=== PATIENT | male | born 1985 | race Caucasian/White ===

== ENCOUNTER 2017-09-20 12:48 | Inpatient (IN) | payer BC ==
[~2017-09-20] VITALS: Ht 172.7 cm; Wt 97.5 kg
[~2017-09-20 12:48] MED LIST: AMOX-355 PO; CETI10CA PO; MMT17NA NSEACH; PREDNISONE 20MG; VICODIN 5/325 PO
--- NOTE | 2017-09-20 13:22 | ED Abdominal Pain ---
General Chief Complaint: Abdominal/GI Problems Stated Complaint: ABD PAIN History of Present Illness Date Seen by Provider: Sep 20, 2017 Time Seen by Provider: 13:22 Initial Comments Patient presents to the emergency room with complaints of left lower abdominal pain and ache in his testicles for 2 days. Mild nausea yesterday yesterday and thinks that this was preceded by abdominal bloating 1 week ago. Pt denies any tenderness on palpation of his testicles. There is no redness and swelling noted at this time. Timing/Duration: 2-3 Days Severity/Quality: Mild Location: LLQ Radiation: No Radiation Activities at Onset: Activity Modifying Factors: Improves With Lying down Associated Symptoms: Nausea/Vomiting Allergies and Home Medications Allergies Coded Allergies: No Known Drug Allergies (Unverified , 06/19/13) Home Medications Amoxicillin/Clavulanate K 1 Each Tablet, 1 EACH PO BID Prescribed by: ROBIN GARCIA on 06/21/13 1046 Cetirizine Hcl 10 Mg Capsule, 10 MG PO DAILY, (Reported) Mometasone Furoate 17 Gm Carrie, 2 SPRAY NSEACH DAILY, (Reported) [Vicodin 5/325] , 1-2 TAB PO Q4H PRN for PAIN Prescribed by: ROBIN GARCIA on 06/21/13 1046 Patient Home Medication List Home Medication List Reviewed: Yes Review of Systems Constitutional: no symptoms reported, see HPI EENTM: No Symptoms Reported, See HPI Respiratory: No Symptoms Reported, See HPI Cardiovascular: No Symptoms Reported, See HPI Gastrointestinal: See HPI, Abdominal Pain, Nausea (mild nausea yesterday) Genitourinary: No Symptoms Reported, See HPI, Other (ache in his testicles ) Musculoskeletal: no symptoms reported, see HPI Skin: no symptoms reported, see HPI Psychiatric/Neurological: No Symptoms Reported, See HPI Endocrine: No Symptoms Reported, See HPI Hematologic/Lymphatic: No Symptoms Reported, See HPI Past Cfafibd-Zfbtuw-Agdxbe Hx Patient Social History Recent Foreign Travel: No Contact w/Someone Who Travel: No Physical Exam Vital Signs VS - Last 72 Hours, by Label 09/20/17 09/20/17 09/20/17 13:00 13:34 13:35 Temp 97.3 97.3 97.3 Pulse 118 Resp 24 B/P (MAP) 119/81 (94) Pulse Ox 96 O2 Delivery Room Air Capillary Refill : General Appearance: WD/WN, no apparent distress HEENT: normal ENT inspection Neck: non-tender, full range of motion Respiratory: chest non-tender, lungs clear, normal breath sounds, no respiratory distress, no accessory muscle use Cardiovascular: normal peripheral pulses, regular rate, rhythm Gastrointestinal: normal bowel sounds, tenderness Genital/Rectal: normal genital exam Extremities: normal range of motion, non-tender, normal inspection Back: normal inspection Pelvic: normal external exam Male: normal genitalia, No testicular tenderness, other (no redness or swelling on exam. ) Skin: normal color, warm/dry Progress/Results/Core Measures Results/Orders Lab Results Laboratory Tests Test 09/20/17 13:10 Range/Units White Blood Count 17.9 H 4.3-11.0 10^3/uL Red Blood Count 4.75 4.35-5.85 10^6/uL Hemoglobin 15.1 13.3-17.7 G/DL Hematocrit 42 40-54 % Mean Corpuscular Volume 89 80-99 FL Mean Corpuscular Hemoglobin 32 25-34 PG Mean Corpuscular Hemoglobin Concent 36 32-36 G/DL Red Cell Distribution Width 12.1 10.0-14.5 % Platelet Count 284 130-400 10^3/uL Mean Platelet Volume 10.7 H 7.4-10.4 FL Neutrophils (%) (Auto) 84 H 42-75 % Lymphocytes (%) (Auto) 6 L 12-44 % Monocytes (%) (Auto) 10 0-12 % Eosinophils (%) (Auto) 0 0-10 % Basophils (%) (Auto) 0 0-10 % Neutrophils # (Auto) 15.0 H 1.8-7.8 X 10^3 Lymphocytes # (Auto) 1.1 1.0-4.0 X 10^3 Monocytes # (Auto) 1.8 H 0.0-1.0 X 10^3 Eosinophils # (Auto) 0.0 0.0-0.3 10^3/uL Basophils # (Auto) 0.0 0.0-0.1 10^3/uL Neutrophils % (Manual) 78 % Lymphocytes % (Manual) 6 % Monocytes % (Manual) 10 % Eosinophils % (Manual) 0 % Basophils % (Manual) 0 % Band Neutrophils 6 % Blood Morphology Comment NORMAL Sodium Level 137 135-145 MMOL/L Potassium Level 3.8 3.6-5.0 MMOL/L Chloride Level 106 98-107 MMOL/L Carbon Dioxide Level 20 L 21-32 MMOL/L Anion Gap 11 5-14 MMOL/L Blood Urea Nitrogen 10 7-18 MG/DL Creatinine 0.96 0.60-1.30 MG/DL Estimat Glomerular Filtration Rate > 60 BUN/Creatinine Ratio 10 Glucose Level 127 H 70-105 MG/DL Calcium Level 8.7 8.5-10.1 MG/DL Total Bilirubin 1.1 H 0.1-1.0 MG/DL Aspartate Amino Transf (AST/SGOT) 15 5-34 U/L Alanine Aminotransferase (ALT/SGPT) 18 0-55 U/L Alkaline Phosphatase 75 40-136 U/L Total Protein 7.1 6.4-8.2 GM/DL Albumin 4.0 3.2-4.5 GM/DL Lipase 10 8-78 U/L My Orders Orders - ANIYAH ANGELES APRN Fentanyl Injection (Sublimaze Injection (09/20/17 13:30) Ketorolac Injection (Toradol Injection) (09/20/17 13:30) Cbc With Automated Diff (09/20/17 13:22) Comprehensive Metabolic Panel (09/20/17 13:22) Lipase (09/20/17 13:22) Ua Culture If Indicated (09/20/17 13:22) Ct Abdomen/Pelvis W (09/20/17 13:22) Iohexol Injection (Omnipaque 350 Mg/Ml 1 (09/20/17 13:30) Ns (Ivpb) (Sodium Chloride 0.9% Ivpb Bag (09/20/17 13:30) Manual Differential (09/20/17 13:10) Piperacillin Sodium/Tazobactam (Zosyn Vi (09/20/17 14:30) Ns Iv 1000 Ml (Sodium Chloride 0.9%) (09/20/17 14:30) Lactic Acid Analyzer (09/20/17 14:27) Blood Culture (09/20/17 14:27) Blood Culture (09/20/17 14:31) Medications Given in ED Current Medications Medications Dose Ordered Sig/Maite Route Start Time Stop Time Status Last Admin Dose Admin Fentanyl Citrate 50 mcg ONCE ONCE IVP 09/20/17 13:30 09/20/17 13:31 DC 09/20/17 13:35 50 MCG Iohexol 100 ml ONCE ONCE IV 09/20/17 13:30 09/20/17 13:31 DC 09/20/17 13:56 75 ML Ketorolac Tromethamine 30 mg ONCE ONCE IVP 09/20/17 13:30 09/20/17 13:31 DC 09/20/17 13:34 30 MG Sodium Chloride 100 ml ONCE ONCE IV 09/20/17 13:30 09/20/17 13:31 DC 09/20/17 13:56 100 ML Vital Signs/I&O Vital Sign - Last 12Hours 09/20/17 09/20/17 09/20/17 13:00 13:34 13:35 Temp 97.3 97.3 97.3 Pulse 118 Resp 24 B/P (MAP) 119/81 (94) Pulse Ox 96 O2 Delivery Room Air Diagnostic Imaging Diagonstic Imaging: CT Comments NAME: [facility] REC#: [id number] PT STATUS: REG ER : 1985 PHYSICIAN: ANIYAH ANGELES APRN ADMIT DATE: 09/20/17/ER Draft Date of Exam:09/20/17 CT ABDOMEN/PELVIS W PROCEDURE: CT abdomen and pelvis with contrast. TECHNIQUE: Multiple contiguous axial images were obtained through the abdomen and pelvis after administration of intravenous contrast. INDICATION: Left lower quadrant pain with bloating and cramping. No prior studies are available for comparison. The lung bases are clear. Liver and gallbladder are unremarkable. The pancreas and spleen are unremarkable. No adrenal mass is seen. Kidneys are unremarkable. Aorta is non-aneurysmal. The appendix is visualized in the right lower quadrant and unremarkable. There is a segment of the significant circumferential wall thickening and pericolonic inflammatory stranding involving the sigmoid colon just distal to the descending colon. There are several small extraluminal air bubbles present adjacent to the inflamed loop consistent with microperforation. There is no fluid collection identified to suggest abscess formation. No findings to suggest bowel obstruction are seen. Bladder is decompressed. Prostate is unremarkable. IMPRESSION: Findings consistent with acute sigmoid diverticulitis. There are findings consistent with microperforation. No abscess formation or bowel obstruction is identified at this time. Dictated on workstation # [id number] Dict: 09/20/17 1407 Trans: 09/20/17 1414 [facility] [id number] Interpreted by: JUAN M CASE MD Electronically signed by: Departure Communication (Admissions) Time/Spoke to Admitting Phy: 14:51 Communication I spoke with Dr. Trivedi who agrees to admit the patient, consult to surgery Time/Spoke to Consulting Phy: 14:52 Communication/Consulting Spoke with Dr. Stevens who would like the patient admitted to medicine, he will consult. Agrees with Zosyn, IV fluids. He will see the patient later this evening. Impression Impression: Primary Impression: acute sigmoid diverticulitis with microperforation Disposition: ADMITTED INPATIENT Condition: Stable Admissions Decision to Admit Reason: Admit from ER (General) Decision to Admit/Date: Sep 20, 2017 Time/Decision to Admit Time: 14:52 Departure-Patient Inst. Referrals: SARAH TOWNSEND MD (PCP/Family) Primary Care Physician ANIYAH ANGELES APRN Sep 20, 2017 13:22
[2017-09-20 13:30] LABS: BASOPHILS % (AUTO) 0 % (0-10); EOSINOPHILS % (AUTO) 0 % (0-10); HEMATOCRIT 42 % (40-54); HEMOGLOBIN 15.1 G/DL (13.3-17.7); LYMPHOCYTES # (AUTO) 1.1 X 10^3 (1.0-4.0); LYMPHOCYTES % (AUTO) 6 % (12-44); MEAN CORPUSCULAR HEMOGLOBIN 32 PG (25-34); MEAN CORPUSCULAR HGB CONC 36 G/DL (32-36); MEAN CORPUSCULAR VOLUME 89 FL (80-99); MEAN PLATELET VOLUME 10.7 FL (7.4-10.4); MONOCYTES # (AUTO) 1.8 X 10^3 (0.0-1.0); MONOCYTES % (AUTO) 10 % (0-12); NEUTROPHILS % (AUTO) 84 % (42-75); PLATELET COUNT 284 10^3/uL (130-400); RED BLOOD COUNT 4.75 10^6/uL (4.35-5.85); RED CELL DISTRIBUTION WIDTH 12.1 % (10.0-14.5); WHITE BLOOD COUNT 17.9 10^3/uL (4.3-11.0)
[2017-09-20] MEDS ORDERED: fentaNYL INJECTION 100 MCG/2 ML AMP IVP ONE ×2 (13:30→15:00)
[2017-09-20] MEDS ORDERED: IOHEXOL 350 MG/ML 100 ML (OMNIPAQUE 350) VIAL IV ONE (13:30)
[2017-09-20] MEDS ORDERED: NS 100 ML (IVPB) BAG IV ONE (13:30)
[2017-09-20] MEDS ORDERED: KETOROLAC 30 MG/ML VIAL IVP ONE (13:30)
[2017-09-20 13:45] LABS: ALANINE AMINOTRANSFERASE 18 U/L (0-55); ALKALINE PHOSPHATASE 75 U/L (40-136); BILIRUBIN,TOTAL 1.1 MG/DL (0.1-1.0); BUN/CREATININE RATIO 10; CALCIUM 8.7 MG/DL (8.5-10.1); CARBON DIOXIDE 20 MMOL/L (21-32); CHLORIDE 106 MMOL/L (98-107); CREATININE SERUM 0.96 MG/DL (0.60-1.30); GFR ESTIMATED > 60; GLUCOSE 127 MG/DL (70-105); LIPASE 10 U/L (8-78); POTASSIUM 3.8 MMOL/L (3.6-5.0); SODIUM 137 MMOL/L (135-145); TOTAL PROTEIN 7.1 GM/DL (6.4-8.2)
[2017-09-20 13:47] LABS: BAND NEUTROPHILS 6 %; BASOPHILS % (MANUAL) 0 %; EOSINOPHILS % (MANUAL) 0 %; LYMPHOCYTES % (MANUAL) 6 %; MONOCYTES % (MANUAL) 10 %; NEUTROPHILS % (MANUAL) 78 %
[2017-09-20 13:48] LABS: RBC MORPH NORMAL
--- NOTE | 2017-09-20 14:15 | Diagnostic Imaging Report ---
PROCEDURE: CT abdomen and pelvis with contrast. TECHNIQUE: Multiple contiguous axial images were obtained through the abdomen and pelvis after administration of intravenous contrast. INDICATION: Left lower quadrant pain with bloating and cramping. No prior studies are available for comparison. The lung bases are clear. Liver and gallbladder are unremarkable. The pancreas and spleen are unremarkable. No adrenal mass is seen. Kidneys are unremarkable. Aorta is non-aneurysmal. The appendix is visualized in the right lower quadrant and unremarkable. There is a segment of the significant circumferential wall thickening and pericolonic inflammatory stranding involving the sigmoid colon just distal to the descending colon. There are several small extraluminal air bubbles present adjacent to the inflamed loop consistent with microperforation. There is no fluid collection identified to suggest abscess formation. No findings to suggest bowel obstruction are seen. Bladder is decompressed. Prostate is unremarkable. IMPRESSION: Findings consistent with acute sigmoid diverticulitis. There are findings consistent with microperforation. No abscess formation or bowel obstruction is identified at this time. Dictated by: Dictated on workstation # [id number]
[2017-09-20] MEDS ORDERED: PIPERACILLIN SODIUM/TAZOBACTAM 4.5 GM in NS (IVPB) 100 ML IV ONE (14:30)
[2017-09-20] MEDS ORDERED: NS IV 1000 ML 1,000 ML IV SCH (14:30)
--- OUTSIDE RECORDS SUMMARY | 2017-09-20 15:15 | XMS REPORT | Clinical Summary ---
Author Author [facility] Organization [facility] Address Unknown Phone Unavailable Care Team Providers Care Stained Glass Glazier Name Role Phone No Pcp, Na PCP Unavailable Source Comments Some departments are not documenting in the electronic medical record. If you do not see the information that you expected, contact Release of Information in the Health Information Management department at [phone] for further assistance in locating additional records.[facility] Allergies No Known Allergies Current Medications Prescription Sig. Disp. Refills Start End Date Status Date FEXOFENADINE HCL (NURIA Take by mouth. Active PO) acetaminophen/codeine Take 1 Tab by mouth every 30 Tab 0 10/27/19 Active (TYLENOL #3) 300/30 mg 6 hours as needed for 17 tablet Pain. Max of 4,000 mg of acetaminophen in 24 hours. dexamethasone (DECADRON) INSTILL 2 DROPS INTO EACH 15 mL 2 02/05/20 Active 0.1 % ophthalmic solution NOSTRIL THREE TIMES 17 DAILY, THEN TAKE 1 WEEK OFF EVERY MONTH fluticasone (FLONASE) 50 2 SPRAYS IN EACH NOSTRIL 32 mL 3 09/14/19 Active mcg/actuation nasal spray 2 TIMES A DAY. 1 WEEK PER 18 MONTH WHEN OFF DROPS fluticasone (FLONASE) 50 2 sprays in each nostril 16 g 3 07/29/19 Discontin mcg/actuation nasal spray 2 times a day 1 week per 17 18 ued month when off drops Active Problems Problem Noted Date Nasal congestion 10/19/2016 Seasonal allergic rhinitis due to pollen 09/28/2016 Chronic recurrent sinusitis 07/29/2016 Overview: Right maxillary subacute with thick white discharge FESS good opening/ hooded by middle turbinates Resolved Problems Problem Noted Date Resolved Date Chronic recurrent sinusitis 09/28/2016 09/28/2016 Encounters Date Type Specialty Care Team Description 09/14/2017 Refill Otolaryngology Anatoly Jacques MD from Last 3 Months Social History Tobacco Use Types Packs/Day Years Used Date Former Smoker Cigarettes 0.5 10 Smokeless Tobacco: Chew Current User Comments: occasional Alcohol Use Drinks/Week oz/Week Comments Yes 1 Cans of 0.6 beer Sex Assigned at Date Recorded Not on file Last Filed Vital Signs Vital Sign Reading Time Taken Blood Pressure 126/87 12/07/2016 2:00 PM CDT Pulse 66 12/07/2016 2:00 PM CDT Temperature 37 C (98.6 F) 10/19/2016 7:50 AM CDT Respiratory Rate - - Oxygen Saturation 98% 10/19/2016 7:50 AM CDT Inhaled Oxygen - - Concentration Weight 99.9 kg (220 lb 3.2 oz) 12/07/2016 2:00 PM CDT Height 175.3 cm (5' 9") 12/07/2016 2:00 PM CDT Body Mass Index 32.52 12/07/2016 2:00 PM CDT Plan of Treatment Health Maintenance Due Date Last Done Comments PHYSICAL (COMPREHENSIVE) 10/16/1991 EXAM PERTUSSIS VACCINE 10/16/1995 TETANUS VACCINE 2001 INFLUENZA VACCINE 02/15/2018 Results Not on filefrom Last 3 Months
--- OUTSIDE RECORDS SUMMARY | 2017-09-20 15:15 | XMS REPORT | Encounter Summary ---
Author Author [facility] Organization [facility] Address Unknown Phone Unavailable Care Team Providers Care Buttermaker Continuous Churn Name Role Phone No Pcp, Na PCP Unavailable Reason for Visit * Reason Comments Medication Refill Encounter Details Date Type Department Care Team Description 09/14/2017 Refill [facility] Anatoly Jacques MD Physicians - ENT [address] [facility] [place] [address] OFFICE [address]LDG [phone] [place] [address] Social History Tobacco Use Types Packs/Day Years Used Date Former Smoker Cigarettes 0.5 10 Smokeless Tobacco: Chew Current User Comments: occasional Alcohol Use Drinks/Week oz/Week Comments Yes 1 Cans of 0.6 beer Sex Assigned at Date Recorded Not on file as of this encounter Plan of Treatment Not on fileas of this encounter Visit Diagnoses Not on filein this encounter
--- OUTSIDE RECORDS SUMMARY | 2017-09-20 15:15 | XMS REPORT ---
Author CONI Kern Organization [employer] Address Unknown Phone Unavailable Care Team Providers Care Civilian Technician Name Role Phone CONI LYON CP Unavailable Allergies, Adverse Reactions, Alerts Substance Reaction Event Type N.K.D.A. Info Not Available Non Drug Allergy Problems Problem Type Condition Code Onset Dates Condition Status Problem Allergic rhinitis, cause unspecified 477.9 Active Problem Acute sinusitis, unspecified 461.9 Active Problem Other and unspecified noninfectious gastroenteritis and colitis 558.9 Active Assessment Allergic rhinitis J30.9 Active Assessment Sinusitis J32.9 Active Medications Medication Code System Code Instructions Start Date End Date Status Dosage Zyrtec-D Allergy & Congestion [facility] [address] 5-120 MG Orally Twice a day prn congestion January 02, [address] [facility] [address]-35 250 MG Orally Once a day Aug 05, 2015 Aug 10, 2015 2 tablets on the first day, then 1 tablet daily for 4 days ZyrTEC NDC 0 5 mg January 10, 2013 1 tablet by Oral route 1 time per day Procedures Procedure Coding System Code Date KENALOG 40 MG/ML (PER 10 MG) CPT-4 J3301 Aug 05, 2015 THER/PROPH/DIAG INJ, SC/IM CPT-4 45996 Aug 05, 2015 Office Visit, Est Pt., Level 3 CPT-4 13822 Aug 05, 2015 Vital Signs Date/Time: Aug 05, 2015 Temperature 97.9 F Weight 238.4 lbs Height 68 in BMI 36.24 Index Blood Pressure Diastolic 80 mmHg Blood Pressure Systolic 124 mmHg Cardiac Monitoring Heart Rate 68 bpm Results No Known Results Summary Purpose [employer] Submission
--- OUTSIDE RECORDS SUMMARY | 2017-09-20 15:15 | XMS REPORT | Continuity of Care Document ---
Author Author [employer] Organization [facility] Address Unknown Phone Unavailable Care Team Providers Care National Account Director Name Role Phone [employer] Unavailable Unavailable Problems Medications Allergies, Adverse Reactions, Alerts Immunizations Results Vital Signs Encounters Location Location Details Encounter Type Encounter Number Reason For Visit Attending Provider ADM Date DC Date Status Source OUTPATIENT [id number] FE VIKTORIYA 09/28/2016 09/28/2016 Active [facility] O Active [facility] Procedures Plan of Care Social History Assessment and Plan Family History Advance Directives Functional Status
--- OUTSIDE RECORDS SUMMARY | 2017-09-20 15:16 | XMS REPORT | Continuity of Care Document ---
Author Author [facility] Organization [facility] Address Unknown Phone Unavailable Allergies Active Description Code Type Severity Reaction Onset Reported/Identified Relationship to Patient Clinical Status Yes No Known Drug Allergies [id number] Drug Allergy Unknown N/A 06/19/2013 Medications There is no data. Problems Date Dx Coded Attending Type Code Diagnosis Diagnosed By 01/10/2013 WILNER ZAMUDIO DO 558.9 GASTROENTERITIS NONINFECTIOUS 01/10/2013 CONI LYON APRN 558.9 GASTROENTERITIS NONINFECTIOUS 06/21/2013 SONIDO PATHAK MD P Ot 473.0 CHR MAXILLARY SINUSITIS 06/21/2013 SONIDO PATHAK MD Ot 473.1 CHR FRONTAL SINUSITIS 06/21/2013 SONIDO PATHAK MD Ot 473.2 CHR ETHMOIDAL SINUSITIS 06/21/2013 SONIDO PATHAK MD P Ot 478.0 HYPERTRPH NASAL TURBINAT 10/10/2014 CONI LYON APRN 461.9 SINUSITIS ACUTE 10/10/2014 CONI LYON APRN 477.9 ALLERGIC RHINITIS CAUSE UNSPECIFIED 05/18/2016 SONIDO PATHAK MD Ot 473.9 CHRONIC SINUSITIS NOS 05/18/2016 SONIDO PATHAK MD Ot 470 DEVIATED NASAL SEPTUM 05/18/2016 SONIDO PATHAK MD Ot 473.9 CHRONIC SINUSITIS NOS 05/18/2016 SONIDO PATHAK MD Ot 478.0 HYPERTRPH NASAL TURBINAT 05/18/2016 SONIDO PATHAK MD Ot V72.63 PRE-PROCEDURAL LABORATORY EXAMINATION 05/18/2016 SONIDO PATHAK MD Ot V74.8 SCREEN-BACTERIAL DIS NEC 06/03/2016 SONIDO PATHAK MD Ot 473.9 CHRONIC SINUSITIS NOS 06/03/2016 SONIDO PATHAK MD Ot 470 DEVIATED NASAL SEPTUM 06/03/2016 SONIDO PATHAK MD Ot 473.9 CHRONIC SINUSITIS NOS 06/03/2016 SONIDO PATHAK MD P Ot 478.0 HYPERTRPH NASAL TURBINAT 06/03/2016 SONIDO PATHAK MD, Ot V72.63 PRE-PROCEDURAL LABORATORY EXAMINATION 06/03/2016 SONIDO PATHAK MD, Ot V74.8 SCREEN-BACTERIAL DIS NEC 06/04/2016 SONIDO PATHAK MD, Ot J35.3 HYPERTROPHY OF TONSILS WITH HYPERTROPHY 06/16/2016 SONIDO PATHAK MD, Ot J35.3 HYPERTROPHY OF TONSILS WITH HYPERTROPHY Procedures Code Description Performed By Performed On J3301 KENALOG INJ, PER 10 MG 10/10/2014 52095 THERAPUTIC INJ SQ/IM 10/10/2014 Results Test Result Range Complete blood count (CBC) with automated white blood cell (WBC) differential - 09/20/17 13:10 Blood leukocytes automated count (number/volume) 17.9 10*3/uL 4.3-11.0 Blood erythrocytes automated count (number/volume) 4.75 10*6/uL 4.35-5.85 Venous blood hemoglobin measurement (mass/volume) 15.1 g/dL 13.3-17.7 Blood hematocrit (volume fraction) 42 % 40-54 Automated erythrocyte mean corpuscular volume 89 [foz_us] 80-99 Automated erythrocyte mean corpuscular hemoglobin (mass per erythrocyte) 32 pg 25-34 Automated erythrocyte mean corpuscular hemoglobin concentration measurement ( mass/volume) 36 g/dL 32-36 Automated erythrocyte distribution width ratio 12.1 % 10.0-14.5 Automated blood platelet count (count/volume) 284 10*3/uL 130-400 Automated blood platelet mean volume measurement 10.7 [foz_us] 7.4-10.4 Automated blood neutrophils/100 leukocytes 84 % 42-75 Automated blood lymphocytes/100 leukocytes 6 % 12-44 Blood monocytes/100 leukocytes 10 % 0-12 Automated blood eosinophils/100 leukocytes 0 % 0-10 Automated blood basophils/100 leukocytes 0 % 0-10 Blood neutrophils automated count (number/volume) 15.0 10*3 1.8-7.8 Blood lymphocytes automated count (number/volume) 1.1 10*3 1.0-4.0 Blood monocytes automated count (number/volume) 1.8 10*3 0.0-1.0 Automated eosinophil count 0.0 10*3/uL 0.0-0.3 Automated blood basophil count (count/volume) 0.0 10*3/uL 0.0-0.1 Comprehensive metabolic panel - 09/20/17 13:10 Serum or plasma sodium measurement (moles/volume) 137 mmol/L 135-145 Serum or plasma potassium measurement (moles/volume) 3.8 mmol/L 3.6-5.0 Serum or plasma chloride measurement (moles/volume) 106 mmol/L 98-107 Carbon dioxide 20 mmol/L 21-32 Serum or plasma anion gap determination (moles/volume) 11 mmol/L 5-14 Serum or plasma urea nitrogen measurement (mass/volume) 10 mg/dL 7-18 Serum or plasma creatinine measurement (mass/volume) 0.96 mg/dL 0.60-1.30 Serum or plasma urea nitrogen/creatinine mass ratio 10 NRG Serum or plasma creatinine measurement with calculation of estimated glomerular filtration rate > NRG Serum or plasma glucose measurement (mass/volume) 127 mg/dL 70-105 Serum or plasma calcium measurement (mass/volume) 8.7 mg/dL 8.5-10.1 Serum or plasma total bilirubin measurement (mass/volume) 1.1 mg/dL 0.1-1.0 Serum or plasma alkaline phosphatase measurement (enzymatic activity/volume) 75 U/L 40-136 Serum or plasma aspartate aminotransferase measurement (enzymatic activity/ volume) 15 U/L 5-34 Serum or plasma alanine aminotransferase measurement (enzymatic activity/volume ) 18 U/L 0-55 Serum or plasma protein measurement (mass/volume) 7.1 g/dL 6.4-8.2 Serum or plasma albumin measurement (mass/volume) 4.0 g/dL 3.2-4.5 Lipase - 09/20/17 13:10 Lipase 10 U/L 8-78 Blood manual differential performed detection - 09/20/17 13:10 Blood monocytes/100 leukocytes 10 % NRG Manual blood segmented neutrophils/100 leukocytes 78 % NRG Blood band neutrophils/100 leukocytes 6 % NRG Manual blood lymphocytes/100 leukocytes 6 % NRG Manual eosinophils/100 leukocytes in nose 0 % NRG Manual blood basophils/100 leukocytes 0 % NRG Blood erythrocyte morphology finding identification NORMAL NRG Encounters ACCT No. Visit Date/Time Discharge Status Pt. Type Provider Facility Loc./Unit Complaint [id number] 06/03/2016 13:06:00 06/03/2016 23:59:59 CLS Outpatient LAWSON GRADY, SONIDO Mcarthur [facility] RAD NASAL CONGESTION [id number] 06/21/2013 07:01:00 06/21/2013 11:40:00 DIS Outpatient SONIDO PATHAK MD [facility] SDC CHRONIC SINUSITIS [id number] 06/19/2013 11:40:00 06/19/2013 23:59:59 CLS Outpatient SONIDO PATHAK MD [facility] PREOP CHRONIC SINUSITIS [id number] 05/11/2013 14:22:00 05/11/2013 23:59:59 CLS Outpatient SONIDO PATHAK MD [facility] RAD CHRONIC SINUSITIS [id number] 09/20/2017 12:49:00 ACT Emergency ANIYAH ANGELES APRN [facility] ER ABD PAIN [id number] 10/10/2014 08:39:00 10/10/2014 23:59:59 CLS Outpatient CONI LYON APRN [id number] 01/10/2013 11:58:00 01/10/2013 23:59:59 CLS Outpatient WILNER ZAMUDIO DO
[2017-09-20 15:17] LABS: BILIRUBIN,URINE NEGATIVE (NEGATIVE); CLARITY,URINE CLEAR; COLOR,URINE AMBER; GLUCOSE, URINE (UA) NEGATIVE (NEGATIVE); KETONES,URINE NEGATIVE (NEGATIVE); LEUKOCYTE ESTERASE ,URINE 1+ (NEGATIVE); NITRITE,URINE NEGATIVE (NEGATIVE); PH,URINE 5 (5-9); PROTEIN,URINE 2+ (NEGATIVE); UROBILINOGEN,URINE 1 MG/DL (NORMAL)
[2017-09-20 15:25] LABS: AMORPHOUS SEDIMENT,UR MOD AMOR URATES /LPF; SQUAMOUS EPITHELIAL CELL,UR 0-2 /HPF
--- NOTE | 2017-09-20 15:26 | History & Physical-Hospitalist ---
HPI History of Present Illness: HPI/Chief Complaint Pt is a 31yoCM who presented to the ER with a CC of left lower abd pain. He states his symptoms started last night and his pain progressed of severe pain at that time. He decided to seek evaluation today as it didn't get any better. He describes the pain as sharp and point to his LLQ when asked. He states it is worsened by pressing on it and moving. He denies any fevers. He has had some nausea but no vomiting, constipation, or diarrhea. He has had not previous episodes of diverticulitis or bowel issues. Source: patient Date Seen 09/20/17 Time Seen by Provider: 14:55 Attending Physician Lul Churchill MD PCP Rickie Mann MD Referring Physician Date of Admission Sep 20, 2017 at 2:52 pm Home Medications & Allergies Home Medications Reviewed patient Home Medication Reconciliation Form Allergies Allergies Coded Allergies No Known Drug Allergies (Uajqijceqm51/3/13) Past Kotnbok-Uxiqwf-Uyghue Hx Patient Social History Employed/Student: employed Alcohol Use: Occasionally Uses Alcohol Beverage of Choice: Beer Recreational Drug Use: No Smoking Status: Never a Smoker Recent Foreign Travel: No Contact w/other who traveled: No Recent Infectious Disease Expo: No Surgeries Yes (sinus surgery) Cardiovascular No Neurological No Genitourinary No Gastrointestinal No Musculoskeletal No Endocrine History of Endocrine Disorders: No HEENT History of HEENT Disorders: Yes (sinus surgeries) Cancer No Psychosocial History of Psychiatric Problem: No Integumentary History of Skin or Integumenta: No Family Medical History Significant Family History: Heart Disease Other Significan Family Hx: Father with diverticulosis Review of Systems Constitutional: No chills, No fever EENTM: No blurred vision, No double vision, No nose congestion, No throat pain Respiratory: No cough, No dyspnea on exertion, No short of breath Cardiovascular: No chest pain, No edema, No palpitations Gastrointestinal: see HPI, abdominal pain (LLQ), No constipation, No diarrhea, nausea, No vomiting Genitourinary: No dysuria, No frequency Musculoskeletal: No joint pain, No muscle pain Skin: No lesions, No rash Psychiatric/Neurological: Denies Headache, Denies Numbness, Denies Tingling Physical Exam Physical Exam Vital Signs Vital Signs - First Documented 09/20/17 13:00 Temp 97.3 Pulse 118 Resp 24 B/P (MAP) 119/81 (94) Pulse Ox 96 O2 Delivery Room Air Capillary Refill : Less Than 3 Seconds General Appearance: No Apparent Distress, WD/WN HEENT: PERRL/EOMI, Moist Mucous Membranes Neck: Non Tender, Supple, No JVD, No Thyromegaly Respiratory: Lungs Clear, No Respiratory Distress Cardiovascular: Regular Rate, Rhythm, No Murmur Gastrointestinal: Normal Bowel Sounds, Soft, No Distended, No Guarding, No Rebound, Tenderness (LLQ) Extremity: Normal Capillary Refill, No Calf Tenderness, No Pedal Edema Neurologic/Psychiatric: Alert, Oriented x3, No Motor/Sensory Deficits, Normal Mood/Affect Skin: Normal Color, Warm/Dry Results Results/Procedures Lab Laboratory Tests 09/20/17 13:10 Radiology Date of Exam:09/20/17 CT ABDOMEN/PELVIS W PROCEDURE: CT abdomen and pelvis with contrast. TECHNIQUE: Multiple contiguous axial images were obtained through the abdomen and pelvis after administration of intravenous contrast. INDICATION: Left lower quadrant pain with bloating and cramping. No prior studies are available for comparison. The lung bases are clear. Liver and gallbladder are unremarkable. The pancreas and spleen are unremarkable. No adrenal mass is seen. Kidneys are unremarkable. Aorta is non-aneurysmal. The appendix is visualized in the right lower quadrant and unremarkable. There is a segment of the significant circumferential wall thickening and pericolonic inflammatory stranding involving the sigmoid colon just distal to the descending colon. There are several small extraluminal air bubbles present adjacent to the inflamed loop consistent with microperforation. There is no fluid collection identified to suggest abscess formation. No findings to suggest bowel obstruction are seen. Bladder is decompressed. Prostate is unremarkable. IMPRESSION: Findings consistent with acute sigmoid diverticulitis. There are findings consistent with microperforation. No abscess formation or bowel obstruction is identified at this time. Assessment/Plan Admission Diagnosis Sepsis due to diverticulitis with bowel perforation Admission Status: Inpatient Order (span 2 midnights) Reason for Inpatient Admission: Sepsis necessitating IV abx. Bowel perforation Diagnosis/Problems Diagnosis/Problems (1) Sepsis Status: Acute Assessment & Plan: Diverticulitis with microperforation of bowl Leukocytosis with tachycardia and tachypnea No signs of severe sepsis ( no end organ involvement, hypotension) lactic acid normal No need for 30cc/kg bolus Blood cultures drawn in ER Continue Zosyn Qualifiers: Qualified Codes: A41.9 - Sepsis, unspecified organism (2) Diverticulitis of sigmoid colon Status: Acute Assessment & Plan: with microperforation Reviewed CT images myself Abx as above Surgery consulted appreciate recs Discussed case with Dr Stevens CLD Fentanyl for pain Zofran for nausea (3) Prophylactic measure Assessment & Plan: CLD NS at 100cc/kg Lovenox LUL CHURCHILL MD Sep 20, 2017 3:26 pm
[2017-09-20] MEDS ORDERED: MILK OF MAGNESIA 400 MG/5 ML 30 ML UDC PO PRN (15:45)
[2017-09-20] MEDS ORDERED: ANTACID SUSP 30 ML UDC (MYLANTA) PO PRN (15:45)
[2017-09-20] MEDS ORDERED: ONDANSETRON 4 MG/2 ML (SDV) Z0FRAN IV PRN (15:45)
[2017-09-20] MEDS ORDERED: PIPERACILLIN SODIUM/TAZOBACTAM 4.5 GM in NS (IVPB) 100 ML IV NR (16:00)
[2017-09-20] MEDS ORDERED: ACETAMINOPHEN 325 MG TABLET/CAPLET (TYLENOL) PO PRN (16:15)
[2017-09-20 16:33] VITALS: BP 129/66
[2017-09-20] MEDS ORDERED: INFLUENZA TRIvalent 2017-2018 0.5 ML/45 MCG SYR IM ONE (17:30)
[2017-09-20] MEDS: NS IV 1000 ML 1,000 ML IV SCH (17:33)
--- NOTE | 2017-09-20 17:49 | Consultation ---
History of Present Illness History of Present Illness Patient Consulted On(miles/time) 09/20/17 17:42 Date Seen by Provider: Sep 20, 2017 Time Seen by Provider: 17:43 History of Present Illness consult requested by Dr. Churchill for diverticulitis with microperforation patient is a 31 year old male with abdominal pain that started last night. Pain worsened. Sharp pain. No radiation. Having some nausea. Patient last week has some abdominal discomfort but went away. No previous episodes. Movement makes worse. Nothing really making it better. Denies fever sweats chills shortness of breath or chest pain. Ct scan demonstrating sigmoid diverticulitis and microperforation. Allergies and Home Medications Allergies Coded Allergies: No Known Drug Allergies (Unverified , 06/19/13) Patient Home Medication List Home Medication List Reviewed: Yes Past Ukzzffz-Ssrbof-Zfrhhb Hx Patient Social History Alcohol Use: Occasionally Uses Number of Drinks Today: AA Recreational Drug Use: No Smoking Status: Never a Smoker Recent Foreign Travel: No Contact w/Someone Who Travel: No Recent Infectious Disease Expo: No Recent Hopitalizations: No Physical Abuse Screen: No Sexual Abuse: No Seasonal Allergies Seasonal Allergies: Yes Surgeries History of Surgeries: Yes (sinus surgery) Respiratory History of Respiratory Disorde: No Cardiovascular History of Cardiac Disorders: No Neurological History of Neurological Disord: No Genitourinary History of Genitourinary Disor: No Gastrointestinal History of Gastrointestinal Di: No Musculoskeletal History of Musculoskeletal Dis: No Endocrine History of Endocrine Disorders: No HEENT History of HEENT Disorders: Yes (sinus surgeries) Cancer History of Cancer: No Psychosocial History of Psychiatric Problem: No Integumentary History of Skin or Integumenta: No Blood Transfusions History of Blood Disorders: No Family Medical History Significant Family History: Heart Disease Review of Systems-General Constitutional: no symptoms reported EENTM: no symptoms reported Respiratory: no symptoms reported Cardiovascular: no symptoms reported Gastrointestinal: see HPI Genitourinary: no symptoms reported Musculoskeletal: no symptoms reported Skin: no symptoms reported Psychiatric/Neurological: No Symptoms Reported Physical Exam-General Problems Physical Exam Vital Signs Vital Signs - First Documented 09/20/17 13:00 Temp 97.3 Pulse 118 Resp 24 B/P (MAP) 119/81 (94) Pulse Ox 96 O2 Delivery Room Air Capillary Refill : Less Than 3 Seconds General Appearance: WD/WN, no apparent distress HEENT: PERRL/EOMI, normal ENT inspection Neck: supple, normal inspection Respiratory: no respiratory distress, no accessory muscle use Cardiovascular: regular rate, rhythm Gastrointestinal: soft, guarding (minimal), No rebound, tenderness (left lower quadrant) Rectal: deferred Back: normal inspection Extremities: non-tender, normal inspection Neurologic/Psychiatric: alert, normal mood/affect, oriented x 3 Skin: warm/dry Lymphatic: no adenopathy Data Review Labs Laboratory Tests 09/20/17 13:10: White Blood Count 17.9H, Red Blood Count 4.75, Hemoglobin 15.1, Hematocrit 42, Mean Corpuscular Volume 89, Mean Corpuscular Hemoglobin 32, Mean Corpuscular Hemoglobin Concent 36, Red Cell Distribution Width 12.1, Platelet Count 284, Mean Platelet Volume 10.7H, Neutrophils (%) (Auto) 84H, Lymphocytes (%) (Auto) 6L, Monocytes (%) (Auto) 10, Eosinophils (%) (Auto) 0, Basophils (%) (Auto) 0, Neutrophils # (Auto) 15.0H, Lymphocytes # (Auto) 1.1, Monocytes # (Auto) 1.8H, Eosinophils # (Auto) 0.0, Basophils # (Auto) 0.0, Neutrophils % (Manual) 78, Lymphocytes % (Manual) 6, Monocytes % (Manual) 10, Eosinophils % (Manual) 0, Basophils % (Manual) 0, Band Neutrophils 6, Blood Morphology Comment NORMAL, Sodium Level 137, Potassium Level 3.8, Chloride Level 106, Carbon Dioxide Level 20L, Anion Gap 11, Blood Urea Nitrogen 10, Creatinine 0.96, Estimat Glomerular Filtration Rate > 60, BUN/Creatinine Ratio 10, Glucose Level 127H, Calcium Level 8.7, Total Bilirubin 1.1H, Aspartate Amino Transf (AST/SGOT) 15, Alanine Aminotransferase (ALT/SGPT) 18, Alkaline Phosphatase 75, Total Protein 7.1, Albumin 4.0, Lipase 10 09/20/17 14:49: Urine Color AMBERH, Urine Clarity CLEAR, Urine pH 5, Urine Specific [place] 1.010L, Urine Protein 2+H, Urine Glucose (UA) NEGATIVE, Urine Ketones NEGATIVE, Urine Nitrite NEGATIVE, Urine Bilirubin NEGATIVE, Urine Urobilinogen 1, Urine Leukocyte Esterase 1+H, Urine RBC (Auto) NEGATIVE, Urine RBC NONE, Urine WBC 5- 10H, Urine Squamous Epithelial Cells 0-2, Urine Crystals PRESENTH, Urine Amorphous Sediment MOD CELINA URATESH, Urine Bacteria NONE, Urine Casts NONE, Urine Mucus NEGATIVE, Urine Culture Indicated YES 09/20/17 15:05: Lactic Acid Level 0.75 Assessment/Plan Assessment/Plan Assessment/Plan sigmoid diverticulitis c micorperforation NPO IV hydration Zosyn/Flagyl conservative management at this time. Clinical Quality Measures DVT/VTE Risk/Contraindication: RFS Level Per Nursing on Admit: 0=No Risk/No VTE PPX EITAN ARGUETA DO Sep 20, 2017 17:49
[2017-09-20] MEDS ORDERED: FEXO-14 PO (18:04)
[2017-09-20] MEDS ORDERED: FLUT16SP22 NSEACH (18:04)
[2017-09-20] MEDS: metroNIDAZOLE 500MG/100ML IVPB 100 ML IV SCH (18:28)
[2017-09-20 20:00] VITALS: BP 127/71
[2017-09-20] MEDS: PIPERACILLIN SODIUM/TAZOBACTAM 4.5 GM in NS (IVPB) 100 ML IV SCH (21:00)
[2017-09-20] MEDS ORDERED: metroNIDAZOLE 500MG/100ML IVPB 100 ML IV ONE (21:00)
[2017-09-21] VITALS: BP 111/55
[2017-09-21] MEDS: metroNIDAZOLE 500MG/100ML IVPB 100 ML IV SCH ×3 (02:25→17:53)
[2017-09-21] MEDS: NS IV 1000 ML 1,000 ML IV SCH (02:28)
[2017-09-21] MEDS: fentaNYL INJECTION 100 MCG/2 ML AMP IVP PRN ×4 (02:28→12:08)
[2017-09-21 04:00] VITALS: BP 130/66
[2017-09-21] MEDS: PIPERACILLIN SODIUM/TAZOBACTAM 4.5 GM in NS (IVPB) 100 ML IV SCH ×3 (05:25→21:03)
[2017-09-21 06:55] LABS: BASOPHILS % (AUTO) 0 % (0-10); EOSINOPHILS % (AUTO) 0 % (0-10); HEMATOCRIT 40 % (40-54); LYMPHOCYTES # (AUTO) 1.7 X 10^3 (1.0-4.0); LYMPHOCYTES % (AUTO) 12 % (12-44); MEAN CORPUSCULAR HEMOGLOBIN 32 PG (25-34); MEAN CORPUSCULAR HGB CONC 35 G/DL (32-36); MEAN CORPUSCULAR VOLUME 91 FL (80-99); MEAN PLATELET VOLUME 10.3 FL (7.4-10.4); MONOCYTES # (AUTO) 1.3 X 10^3 (0.0-1.0); MONOCYTES % (AUTO) 9 % (0-12); NEUTROPHILS # (AUTO) 11.7 X 10^3 (1.8-7.8); NEUTROPHILS % (AUTO) 79 % (42-75); PLATELET COUNT 236 10^3/uL (130-400); WHITE BLOOD COUNT 14.8 10^3/uL (4.3-11.0)
[2017-09-21 07:16] LABS: BUN/CREATININE RATIO 10; CALCIUM 8.7 MG/DL (8.5-10.1); CARBON DIOXIDE 25 MMOL/L (21-32); CHLORIDE 108 MMOL/L (98-107); CREATININE SERUM 1.05 MG/DL (0.60-1.30); GFR ESTIMATED > 60; GLUCOSE 108 MG/DL (70-105); POTASSIUM 3.9 MMOL/L (3.6-5.0); SODIUM 141 MMOL/L (135-145)
[2017-09-21] MEDS: ENOXAPARIN 40 MG/0.4 ML (LOVENOX) SYR SC SCH (07:38)
[2017-09-21 08:00] VITALS: BP 133/72
--- NOTE | 2017-09-21 10:39 | Progress Note-Hospitalist ---
Subjective HPI/CC On Admission Date Seen by Provider: Sep 21, 2017 Time Seen by Provider: 10:35 Pt is a 31yoCM who presented to the ER with a CC of left lower abd pain. He states his symptoms started last night and his pain progressed of severe pain at that time. He decided to seek evaluation today as it didn't get any better. He describes the pain as sharp and point to his LLQ when asked. He states it is worsened by pressing on it and moving. He denies any fevers. He has had some nausea but no vomiting, constipation, or diarrhea. He has had not previous episodes of diverticulitis or bowel issues. Subjective/Events-last exam Pt reports feeling better. Able to move and take a shower without severe pain but still sharp "stabbing" pain in LLQ. Otherwise not complaints. Has been out of bed without problems. No vomiting. Objective Exam Vital Signs Vital Signs Date Time Temp Pulse Resp B/P (MAP) Pulse Ox O2 Delivery O2 Flow Rate FiO2 09/20/17 13:00 97.3 118 24 119/81 (94) 96 Room Air Capillary Refill : Less Than 3 Seconds General Appearance: No Apparent Distress, WD/WN Respiratory: Lungs Clear, No Respiratory Distress Cardiovascular: Regular Rate, Rhythm, No Murmur Gastrointestinal: Normal Bowel Sounds, Soft, Tenderness (LLQ) Extremity: Non Tender, No Calf Tenderness, No Pedal Edema Neurologic/Psychiatric: Alert, Oriented x3, Normal Mood/Affect Skin: Normal Color, Warm/Dry Results/Procedures Lab Laboratory Tests 09/20/17 13:10 09/21/17 06:47 Assessment/Plan Assessment and Plan Assess & Plan/Chief Complaint Diverticulitis with microperforation Diagnosis/Problems Diagnosis/Problems (1) Sepsis Status: Acute Assessment & Plan: Diverticulitis with microperforation of bowl Sepsis resolved Blood cultures drawn in ER- pending Continue Zosyn/Flagyl Qualifiers: Qualified Codes: A41.9 - Sepsis, unspecified organism (2) Diverticulitis of sigmoid colon Status: Acute Assessment & Plan: with microperforation Abx as above Surgery consulted appreciate recs, discussed with Dr Stevens- will keep NPO until tomorrow Fentanyl for pain, can switch to morphine if fentanyl not helping Zofran for nausea (3) Prophylactic measure Assessment & Plan: NPO D5 1/2 NS at 100cc/hr Lovenox STEPHANIE,LUL M MD Sep 21, 2017 10:39
[2017-09-21 12:00] VITALS: BP 128/76
[2017-09-21] MEDS: D5 1/2 NS 1000 ML IV SOLUTION 1,000 ML IV SCH ×2 (12:03→21:03)
[2017-09-21] MEDS: morphine INJ 4 MG/ML 1 ML (VIAL/SYRINGE) IVP PRN ×3 (14:24→21:46)
[2017-09-21 16:00] VITALS: BP 136/81
--- NOTE | 2017-09-21 17:42 | Progress Note ---
Subjective Date Seen by Provider: Sep 21, 2017 Time Seen by Provider: 09:00 Subjective/Events-last exam Patient feels a little bit better today than yesterday. Patient states that pain is primarily left lower quadrant but has improved. He denies any fever sweats chills shortness of breath or chest pain. WBC slightly down. Patient on Zosyn and Flagyl. Currently nothing by mouth. Objective Exam Vital Signs Date Time Temp Pulse Resp B/P (MAP) Pulse Ox O2 Delivery O2 Flow Rate FiO2 09/21/17 16:00 100.1 80 20 136/81 (99) 97 Room Air 09/21/17 12:00 99.1 76 18 128/76 (93) 97 Room Air 09/21/17 09:00 Room Air 09/21/17 08:00 99.9 85 20 133/72 (92) 94 Room Air 09/21/17 04:00 99.2 86 19 130/66 (87) 96 Room Air 09/21/17 00:00 99.0 82 18 111/55 (73) 97 Room Air 09/20/17 20:55 Room Air 09/20/17 20:00 98.6 80 18 127/71 (89) 97 Room Air I & O 09/21/17 07:00 Intake Total 2500 ml Balance 2500 ml Capillary Refill : Less Than 3 Seconds General Appearance: No Apparent Distress, WD/WN HEENT: PERRL/EOMI, Moist Mucous Membranes Neck: Non Tender, Supple, No JVD, No Thyromegaly Respiratory: Lungs Clear, No Respiratory Distress Cardiovascular: Regular Rate, Rhythm, No Murmur Gastrointestinal: soft, No rebound, tenderness (left lower quadrant) Extremity: Non Tender, No Calf Tenderness, No Pedal Edema Neurologic/Psychiatric: Alert, Oriented x3, Normal Mood/Affect Skin: Normal Color, Warm/Dry Lymphatic: No Adenopathy Results Lab Laboratory Tests 09/21/17 06:47: White Blood Count 14.8H, Red Blood Count 4.40, Hemoglobin 14.0, Hematocrit 40, Mean Corpuscular Volume 91, Mean Corpuscular Hemoglobin 32, Mean Corpuscular Hemoglobin Concent 35, Red Cell Distribution Width 12.0, Platelet Count 236, Mean Platelet Volume 10.3, Neutrophils (%) (Auto) 79H, Lymphocytes (%) (Auto) 12 , Monocytes (%) (Auto) 9, Eosinophils (%) (Auto) 0, Basophils (%) (Auto) 0, Neutrophils # (Auto) 11.7H, Lymphocytes # (Auto) 1.7, Monocytes # (Auto) 1.3H, Eosinophils # (Auto) 0.0, Basophils # (Auto) 0.0, Sodium Level 141, Potassium Level 3.9, Chloride Level 108H, Carbon Dioxide Level 25, Anion Gap 8, Blood Urea Nitrogen 10, Creatinine 1.05, Estimat Glomerular Filtration Rate > 60, BUN/ Creatinine Ratio 10, Glucose Level 108H, Calcium Level 8.7 Microbiology 09/20/17 Blood Culture - Preliminary, Resulted No growth 09/20/17 Urine Culture - Preliminary, Resulted NO GROWTH Assessment/Plan Assessment/Plan Assessment/Plan sigmoid diverticulitis c micorperforation Continue below: NPO IV hydration Zosyn/Flagyl conservative management at this time. Clinical Quality Measures DVT/VTE Risk/Contraindication: RFS Level Per Nursing on Admit: 0=No Risk/No VTE PPX EITAN ARGUETA DO Sep 21, 2017 17:42
[2017-09-21 19:51] VITALS: BP 147/86
[2017-09-22 00:41] VITALS: BP 125/78
[2017-09-22] MEDS: metroNIDAZOLE 500MG/100ML IVPB 100 ML IV SCH ×3 (02:40→17:23)
[2017-09-22 03:56] VITALS: BP 105/59
[2017-09-22] MEDS: PIPERACILLIN SODIUM/TAZOBACTAM 4.5 GM in NS (IVPB) 100 ML IV SCH ×3 (05:26→21:50)
[2017-09-22 06:51] LABS: BASOPHILS # (AUTO) 0.1 10^3/uL (0.0-0.1); BASOPHILS % (AUTO) 1 % (0-10); EOSINOPHILS # (AUTO) 0.2 10^3/uL (0.0-0.3); EOSINOPHILS % (AUTO) 2 % (0-10); HEMATOCRIT 39 % (40-54); HEMOGLOBIN 13.7 G/DL (13.3-17.7); LYMPHOCYTES # (AUTO) 1.6 X 10^3 (1.0-4.0); LYMPHOCYTES % (AUTO) 16 % (12-44); MEAN CORPUSCULAR HEMOGLOBIN 32 PG (25-34); MEAN CORPUSCULAR HGB CONC 35 G/DL (32-36); MEAN CORPUSCULAR VOLUME 90 FL (80-99); MEAN PLATELET VOLUME 10.7 FL (7.4-10.4); MONOCYTES # (AUTO) 0.8 X 10^3 (0.0-1.0); MONOCYTES % (AUTO) 8 % (0-12); NEUTROPHILS # (AUTO) 7.2 X 10^3 (1.8-7.8); NEUTROPHILS % (AUTO) 73 % (42-75); PLATELET COUNT 268 10^3/uL (130-400); RED BLOOD COUNT 4.34 10^6/uL (4.35-5.85); RED CELL DISTRIBUTION WIDTH 11.9 % (10.0-14.5); WHITE BLOOD COUNT 9.8 10^3/uL (4.3-11.0)
[2017-09-22] MEDS: D5 1/2 NS 1000 ML IV SOLUTION 1,000 ML IV SCH ×3 (06:53→20:24)
[2017-09-22 07:07] LABS: BUN/CREATININE RATIO 11; CALCIUM 8.7 MG/DL (8.5-10.1); CARBON DIOXIDE 24 MMOL/L (21-32); CHLORIDE 107 MMOL/L (98-107); CREATININE SERUM 0.93 MG/DL (0.60-1.30); GFR ESTIMATED > 60; GLUCOSE 93 MG/DL (70-105); POTASSIUM 3.8 MMOL/L (3.6-5.0); SODIUM 139 MMOL/L (135-145)
[2017-09-22 08:00] VITALS: BP 123/71
[2017-09-22] MEDS: morphine INJ 4 MG/ML 1 ML (VIAL/SYRINGE) IVP PRN ×6 (09:44→20:24)
[2017-09-22] MEDS: ENOXAPARIN 40 MG/0.4 ML (LOVENOX) SYR SC SCH (09:45)
--- NOTE | 2017-09-22 10:15 | Progress Note-Hospitalist ---
Subjective HPI/CC On Admission Date Seen by Provider: Sep 22, 2017 Time Seen by Provider: 09:15 Pt is a 31yoCM who presented to the ER with a CC of left lower abd pain. He states his symptoms started last night and his pain progressed of severe pain at that time. He decided to seek evaluation today as it didn't get any better. He describes the pain as sharp and point to his LLQ when asked. He states it is worsened by pressing on it and moving. He denies any fevers. He has had some nausea but no vomiting, constipation, or diarrhea. He has had not previous episodes of diverticulitis or bowel issues. Subjective/Events-last exam Pt reports feeling better. He was up and walking without any pain. Would like to try sips today. No BM since admission. No nausea, SOB. Pain well controlled. Objective Exam Vital Signs Vital Signs Date Time Temp Pulse Resp B/P (MAP) Pulse Ox O2 Delivery O2 Flow Rate FiO2 09/20/17 13:00 97.3 118 24 119/81 (94) 96 Room Air Capillary Refill : Less Than 3 Seconds General Appearance: No Apparent Distress, WD/WN Respiratory: Lungs Clear, No Accessory Muscle Use, No Respiratory Distress Cardiovascular: Regular Rate, Rhythm, No Murmur Gastrointestinal: Normal Bowel Sounds, Non Tender, Soft, No Distended Neurologic/Psychiatric: Alert, Oriented x3, Normal Mood/Affect Results/Procedures Lab Laboratory Tests 09/22/17 06:08 Assessment/Plan Assessment and Plan Assess & Plan/Chief Complaint Diverticulitis with microperforation Diagnosis/Problems Diagnosis/Problems (1) Sepsis Status: Acute Assessment & Plan: Diverticulitis with microperforation of bowl Sepsis resolved Blood cultures drawn in ER- NGTD Continue Zosyn/Flagyl Will allow sips today Qualifiers: Qualified Codes: A41.9 - Sepsis, unspecified organism (2) Diverticulitis of sigmoid colon Status: Acute Assessment & Plan: with microperforation Abx as above Surgery consulted appreciate recs, discussed with Dr Stevens Morphine for pain Zofran for nausea (3) Prophylactic measure Assessment & Plan: Allow sips only D5 1/2 NS at 100cc/hr LUL Soto MD Sep 22, 2017 10:15 am
--- NOTE | 2017-09-22 11:39 | Progress Note ---
Subjective Date Seen by Provider: Sep 22, 2017 Time Seen by Provider: 11:36 Subjective/Events-last exam Feeling and getting around better. WBC down. Pain better in LLQ. T max 100.4 No n/v sweats chills shortness of breath or chest pain. Objective Exam Vital Signs Date Time Temp Pulse Resp B/P (MAP) Pulse Ox O2 Delivery O2 Flow Rate FiO2 09/22/17 08:00 99.6 61 20 123/71 (88) 98 Room Air 09/22/17 03:56 97.9 72 18 105/59 (74) 96 Room Air 09/22/17 00:41 99.7 93 17 125/78 (94) 97 Room Air 09/21/17 21:03 100.0 09/21/17 20:55 Room Air 09/21/17 19:51 100.4 89 20 147/86 (106) 95 Room Air 09/21/17 16:00 100.1 80 20 136/81 (99) 97 Room Air 09/21/17 12:00 99.1 76 18 128/76 (93) 97 Room Air I & O 09/22/17 07:00 Intake Total 1400 ml Balance 1400 ml Capillary Refill : Less Than 3 Seconds General Appearance: No Apparent Distress, WD/WN HEENT: PERRL/EOMI, Moist Mucous Membranes Neck: Non Tender, Supple, No JVD, No Thyromegaly Respiratory: Lungs Clear, No Accessory Muscle Use, No Respiratory Distress Cardiovascular: Regular Rate, Rhythm, No Murmur Gastrointestinal: soft, No rebound, tenderness (left lower quadrant less) Extremity: Non Tender, No Calf Tenderness, No Pedal Edema Neurologic/Psychiatric: Alert, Oriented x3, Normal Mood/Affect Skin: Normal Color, Warm/Dry Lymphatic: No Adenopathy Results Lab Laboratory Tests 09/22/17 06:08: White Blood Count 9.8, Red Blood Count 4.34L, Hemoglobin 13.7, Hematocrit 39L, Mean Corpuscular Volume 90, Mean Corpuscular Hemoglobin 32, Mean Corpuscular Hemoglobin Concent 35, Red Cell Distribution Width 11.9, Platelet Count 268, Mean Platelet Volume 10.7H, Neutrophils (%) (Auto) 73, Lymphocytes (%) (Auto) 16 , Monocytes (%) (Auto) 8, Eosinophils (%) (Auto) 2, Basophils (%) (Auto) 1, Neutrophils # (Auto) 7.2, Lymphocytes # (Auto) 1.6, Monocytes # (Auto) 0.8, Eosinophils # (Auto) 0.2, Basophils # (Auto) 0.1, Sodium Level 139, Potassium Level 3.8, Chloride Level 107, Carbon Dioxide Level 24, Anion Gap 8, Blood Urea Nitrogen 10, Creatinine 0.93, Estimat Glomerular Filtration Rate > 60, BUN/ Creatinine Ratio 11, Glucose Level 93, Calcium Level 8.7 Microbiology 09/20/17 Blood Culture - Preliminary, Resulted No growth 09/20/17 Urine Culture - Preliminary, Resulted NO GROWTH Assessment/Plan Assessment/Plan Assessment/Plan sigmoid diverticulitis c micorperforation wbc down Continue below: NPO IV hydration Zosyn/Flagyl conservative management at this time. try sips of clears Clinical Quality Measures DVT/VTE Risk/Contraindication: RFS Level Per Nursing on Admit: 0=No Risk/No VTE PPX EITAN ARGUETA DO Sep 22, 2017 11:39
[2017-09-22 12:00] VITALS: BP 130/73
[2017-09-22 16:30] VITALS: BP 132/80
[2017-09-22 20:42] VITALS: BP 137/88
[2017-09-23] VITALS: BP 142/88
[2017-09-23] MEDS: morphine INJ 4 MG/ML 1 ML (VIAL/SYRINGE) IVP PRN ×2 (00:29→09:57)
[2017-09-23] MEDS: metroNIDAZOLE 500MG/100ML IVPB 100 ML IV SCH ×2 (02:13→09:49)
[2017-09-23] MEDS: PIPERACILLIN SODIUM/TAZOBACTAM 4.5 GM in NS (IVPB) 100 ML IV SCH (05:31)
[2017-09-23 08:00] VITALS: BP 125/79
[2017-09-23] MEDS: ENOXAPARIN 40 MG/0.4 ML (LOVENOX) SYR SC SCH (09:49)
[2017-09-23] MEDS ORDERED: AMOX-358 PO (10:44)
[2017-09-23] MEDS ORDERED: HYDR-3812 PO (10:44)
[2017-09-23 12:00] VITALS: BP 125/79
--- NOTE | 2017-09-23 12:13 | Discharge Summary-Hospitalist ---
Diagnosis/Chief Complaint Date of Admission Sep 20, 2017 at 2:52 pm Date of Discharge Discharge Date: Sep 23, 2017 Admission Diagnosis Sepsis due to diverticulitis with bowel perforation Discharge Diagnosis Diverticulitis with microperforation (1) Sepsis Status: Resolved Assessment & Plan: Diverticulitis with microperforation of bowl Sepsis resolved Blood cultures drawn in ER- NGTD Transition to Augmentin for DC CLD (2) Diverticulitis of sigmoid colon Status: Acute Assessment & Plan: with microperforation Abx as above Surgery consulted appreciate recs, discussed with Dr Stevens today Will follow up in 2 weeks Zofran for nausea (3) Prophylactic measure Assessment & Plan: CLD Saline Lock Lovenox Discharge Summary Consultations Dr Stevens- Surgery Discharge Physical Examination Allergies: Coded Allergies: No Known Drug Allergies (Unverified , 06/19/13) Vitals & I&Os Vital Signs Date Time Temp Pulse Resp B/P (MAP) Pulse Ox O2 Delivery O2 Flow Rate FiO2 09/23/17 08:00 98.4 51 20 125/79 (94) 97 Room Air Hospital Course Pt is a 31yoCM who presented to the ER with CC of abd pain and was found to have diverticulitis with microperforation. He was admitted for IV abx and monitoring. He responded well and was feeling better on day of discharge. He was comfortable with plan to DC home. He will continue on antibiotics as outpatient and he is to follow up with Dr Stevens in 2 weeks. Labs (last 24 hrs) Microbiology 09/20/17 Blood Culture - Preliminary, Resulted No growth 09/20/17 Urine Culture - Preliminary, Resulted NO GROWTH Discussion & Recommendations Discharge Planning: <30 minutes discharge planning Discharge Home Medications: Active Scripts Active Hydrocodone-Acetamin 5-325 mg (Hydrocodone/Acetaminophen) 1 Each Tablet 1 Each PO Q6H Augmentin 875-125 Tablet (Amoxicillin/Potassium Clav) 1 Each Tablet 1 Each PO BID Reported Ariana Allergy (Fexofenadine HCl) 60 Mg Tablet 60 Mg PO DAILY Fluticasone Propionate 16 Gm Nemacolin.susp 2 Sprays NSEACH DAILY PRN Instructions to patient/family Please see electronic discharge instructions given to patient. Clinical Quality Measures DVT/VTE Risk/Contraindication: RFS Level Per Nursing on Admit: 0=No Risk/No VTE PPX Copy Copies To 1: EITAN STEVENS DO; SARAH TOWNSEND MD Problem Qualifiers (1) Sepsis: Sepsis type: sepsis due to unspecified organism Qualified Codes: A41.9 - Sepsis, unspecified organism LUL BROWN MD Sep 23, 2017 12:13 pm
--- NOTE | 2017-09-23 13:25 | Progress Note ---
Subjective Date Seen by Provider: Sep 23, 2017 Time Seen by Provider: 08:10 Subjective/Events-last exam Patient feeling better. Pain minimal. Tolerating sips of clears. Patient without fever. WBC improved. Denies n/v fever sweats chills shortness of breath or chest pain. Objective Exam Vital Signs Date Time Temp Pulse Resp B/P (MAP) Pulse Ox O2 Delivery O2 Flow Rate FiO2 09/23/17 12:00 51 20 125/79 97 Room Air 09/23/17 08:00 98.4 51 20 125/79 (94) 97 Room Air 09/23/17 00:00 97.8 66 17 142/88 (106) 97 Room Air 09/22/17 20:42 99.1 62 20 137/88 (104) 99 Room Air 09/22/17 16:30 99.2 63 20 132/80 (97) 99 Room Air I & O 09/23/17 07:00 Intake Total 650 ml Balance 650 ml Capillary Refill : Less Than 3 Seconds General Appearance: No Apparent Distress, WD/WN HEENT: PERRL/EOMI, Moist Mucous Membranes Neck: Non Tender, Supple, No JVD, No Thyromegaly Respiratory: Lungs Clear, No Accessory Muscle Use, No Respiratory Distress Cardiovascular: Regular Rate, Rhythm, No Murmur Gastrointestinal: soft, No rebound, tenderness (left lower quadrant minimal) Extremity: Non Tender, No Calf Tenderness, No Pedal Edema Neurologic/Psychiatric: Alert, Oriented x3, Normal Mood/Affect Skin: Normal Color, Warm/Dry Lymphatic: No Adenopathy Results Lab Microbiology 09/20/17 Blood Culture - Preliminary, Resulted No growth 09/20/17 Urine Culture - Preliminary, Resulted NO GROWTH Assessment/Plan Assessment/Plan Assessment/Plan sigmoid diverticulitis c micorperforation wbc down clear liquid diet for 2-3 days. if tolerates clears could likely be dc'd convert to oral abx will need colonoscopy 6 weeks after symptoms resolved. Clinical Quality Measures DVT/VTE Risk/Contraindication: RFS Level Per Nursing on Admit: 0=No Risk/No VTE PPX EITAN ARGUETA DO Sep 23, 2017 13:25
== END 2017-09-23 12:20 | disposition home or self-care (01) | DRG 872 ==
LOC: EDUNIT# 12:48 → ER 12:49 → 4TH 14:52
PROVIDERS: ADMIT Family Medicine; ATTEND Family Medicine
DX: A41.9 Sepsis, unspecified organism (principal); K57.20 Diverticulitis of large intestine with perforation and abscess without bleeding
CPT/HCPCS: 36415; 74177; 80048; 80053; 81000; 83605; 83690; 85007; 85025; 85027; 87040; 87088; 96361; 96365; 96375